=== PATIENT | female | born 1960 | race Caucasian/White ===

== ENCOUNTER → 2019-04-07 | Outpatient (CLI) | payer OTHER ==
[~2019-04-07] MED LIST: ARMOUR THYROID30 M1 PO; ASPIR 8181 MG PO; BENTYL 20 MG TA20 M1 PO; CARDIZEM CD120 MG PO; CIPRO500 MG PO; DARVOCET-N 1001 EAC1 PO; DARVOCET-N 1001 EACH PO; ESTRADIOL 1 MG T1 M1 PO; FISH OIL 1,001000 M2 PO; FLAGYL500 MG PO; PROGESTERONE100 MG PO; UNICOMPLEX M TA1 TA1 PO; VITAMIN D1000 UNI1 PO; ZOFRAN4 MG PO
[2019-04-07 08:32] LABS: HEMOGLOBIN 13.7 gm/dL (12.0-15.0); MCHC 33.4 g/dL (28.0-37.0); MCV 86.9 fL (80.0-100.0); MPV 7.2 fl. (7.2-11.1); RBC 4.71 mil/uL (4.20-5.00); WBC 4.8 thou/uL (4.0-11.0)
[2019-04-07 08:45] LABS: ALBUMIN 3.2 g/dL (3.4-5.0); CALCIUM 8.9 mg/dL (8.5-10.1); POTASSIUM 3.8 mmol/L (3.5-5.1); TOTAL BILIRUBIN 0.4 mg/dL (<0.1-1.0); TOTAL PROTEIN 7.3 g/dL (6.4-8.2)
== END ==
LOC: M.LAB 03-30 14:56
PROVIDERS: Internal Medicine Cardiovascular Disease
DX: I48.91 Unspecified atrial fibrillation (principal); J98.4 Other disorders of lung

== ENCOUNTER → 2019-04-19 | Outpatient (CLI) | payer OTHER ==
[2019-04-19] VITALS (12 sets, daily range): BP systolic 114–183; BP diastolic 65–124
--- NOTE | 2019-04-19 16:19 | TEE ---
[place] [address] TRANSESOPHAGEAL ECHOCARDIOGRAM Name: RYAN TORO Room: [facility]#: [id number] Admission: 04/19/19 Attend Phys: Ruddy Singer, Discharge: Date of : 58 Date of Service: 04/19/19 1619 Report #: [id number] THIS REPORT FOR: //name// APPROVED REPORT Study performed: 04/19/2019 12:27:45 EXAM: Transesophageal Echocardiogram Patient Location: Out-Patient Status: routine BSA: 1.91 HR: 87 bpm BP: 150/102 mmHg Rhythm: NSR Other Information Study Quality: Good Indications Pre Ablation Echo Enhancing Agent Indication: Rule out Shunt Agent(s) / Amount(s) Used: Agitated Saline 10 cc Procedure After obtaining informed consent, patient underwent transesophageal echo in the [employer]. Type of Sedation : Conscious Sedation Sedation was administered by Maty Gaspar RN. Sedation start time: 12 :33 Case end Time: 12:46 Sedation was achieved intravenously with: Versed (4) Transesophageal probe was inserted and advanced into esophagus without difficulty by Ruddy Singer MD, FACC. Echo enhancement indication: R/O Septal defect. Echo enhancement agent administered: Agitated Saline The RENE was performed without complications. Throughout the procedure, the blood pressure, pulse oximetry, cardiac rhythm, and rate were monitored. The patient tolerated the procedure without adverse effects. Recovery from conscious sedation was uneventful and vital signs were stable. Left Ventricle The left ventricle is normal size. There [place] [address] TRANSESOPHAGEAL ECHOCARDIOGRAM Name: RYAN TORO Room: [facility]#: [id number] Admission: 04/19/19 Attend Phys: Ruddy Singer, Discharge: Date of : 58 Date of Service: 04/19/19 1619 Report #: [id number] motion. There is normal left ventricular wall thickness. Left ventricular systolic function is normal. LVEF is 55-60%. Right Ventricle The right ventricle is normal size. The right ventricular systolic function is normal. Atria The left atrium size is normal. No thrombus is visualized in the left atrium or appendage. Interatrial septum is intact without evidence of ASD or PFO. The right atrium size is normal. Aortic Valve The aortic valve is normal in structure. No aortic regurgitation is present. There is no aortic valvular stenosis. Mitral Valve The mitral valve is normal in structure. Trace mitral regurgitation. No evidence of mitral valve stenosis. Tricuspid Valve The tricuspid valve is normal in structure. There is no tricuspid valve regurgitation noted. Pulmonic Valve The pulmonary valve is normal in structure. There is no pulmonic valvular regurgitation. Great Vessels The aortic root is normal in size. Pericardium There is no pericardial effusion. <Conclusion> The left ventricle is normal size. There is normal left ventricular wall thickness. Left ventricular systolic function is normal. LVEF is 55-60%. There is normal LV segmental wall motion. Interatrial septum is intact without evidence of ASD or PFO. The left [place] [address] TRANSESOPHAGEAL ECHOCARDIOGRAM Name: RYAN TORO Room: [facility]#: [id number] Admission: 04/19/19 Attend Phys: Ruddy Singer, Discharge: Date of : 58 Date of Service: 04/19/191618 Report #: [id number] No thrombus is visualized in the left atrium or appendage. Trace mitral regurgitation. <ELECTRONICALLY SIGNED> By: Ruddy Singer MD, FACC 04/19/191618 18 18 Ruddy Singer MD, FACC /INF
== END | disposition home or self-care (01) ==
LOC: M.CL 10:48
DX: I48.91 Unspecified atrial fibrillation (principal); I34.0 Nonrheumatic mitral (valve) insufficiency; Z88.0 Allergy status to penicillin; Z79.82 Long term (current) use of aspirin; Z79.01 Long term (current) use of anticoagulants; Z79.899 Other long term (current) drug therapy; Z98.890 Other specified postprocedural states; Z87.440 Personal history of urinary (tract) infections

== ENCOUNTER → 2020-09-07 | Outpatient (CLI) | payer OTHER | LOC: M.RAD 08-30 16:14 | PROVIDERS: ATTEND Physician Assistant | DX: Z12.31 Encounter for screening mammogram for malignant neoplasm of breast (principal); N95.1 Menopausal and female climacteric states; M85.88 Other specified disorders of bone density and structure, other site ==